=== PATIENT | female | born 1975 | race Two or more races ===

== ENCOUNTER 2018-06-26 09:45 | Day surgery (SDC) | payer MEDICAID ==
[2018-06-13 13:14] LABS: BASOPHILS % (AUTO) 0.7 % (0.0-2.0); HEMATOCRIT 44.4 % (37.0-47.0); LYMPHOCYTES % (AUTO) 37.8 % (20.0-45.0); MEAN CORPUSCULAR VOLUME 90 FL (80-99); MONOCYTES % (AUTO) 6.2 % (1.0-10.0); NEUTROPHILS % (AUTO) 53.3 % (45.0-75.0); PLATELET COUNT 297 K/UL (150-450); RED BLOOD COUNT 4.95 M/UL (4.20-5.40); RED CELL DISTRIBUTION WIDTH 12.1 % (11.6-14.8); WHITE BLOOD COUNT 9.7 K/UL (4.8-10.8)
[2018-06-13 13:22] LABS: ANION GAP 8 mmol/L (5-15); BLOOD UREA NITROGEN 7 mg/dL (7-18); CALCIUM 9.1 MG/DL (8.5-10.1); CARBON DIOXIDE 28 MMOL/L (21-32); CHLORIDE 101 MMOL/L (98-107); CREATININE 0.5 MG/DL (0.55-1.30); INR 1.2 (0.9-1.1); POTASSIUM 3.9 MMOL/L (3.5-5.1); SODIUM 137 MMOL/L (136-145)
[2018-06-13 13:25] LABS: APPEARANCE,URINE CLEAR; BILIRUBIN, URINE NEGATIVE (NEGATIVE); GLUCOSE, URINE (UA) 4+ (NEGATIVE); KETONES,URINE NEGATIVE (NEGATIVE); LEUKOCYTE ESTERASE ,URINE 1+ (NEGATIVE); NITRITE,URINE NEGATIVE (NEGATIVE); PH,URINE 6.5 (4.5-8.0); PROTEIN,URINE 2+ (NEGATIVE); UROBILINOGEN,URINE NORMAL MG/DL (0.0-1.0)
[2018-06-13 13:48] LABS: COLOR,URINE YELLOW
--- NOTE | 2018-06-14 16:05 | Cardiology Report ---
APPROVED REPORT EKG Measurement Heart [id number] [place] [id number] [id number] Normal sinus rhythm Normal ECG
--- NOTE | 2018-06-23 17:15 | Pre-op HX & Phy Repo 2 SIG ---
DATE OF ADMISSION: 06/26/2018 SCHEDULED FOR SURGERY: June 26, 2018. HISTORY OF PRESENT ILLNESS: The patient is a 42-year-old female in overall stable health, who presented with several weeks of bloody nipple discharge from the right breast. Mammogram was unremarkable. Ultrasound revealed an intraductal solid mass at 11 o'clock 2 cm from the nipple measuring 7 mm x 8 mm. Core biopsy revealed ductal carcinoma in situ. The patient is scheduled to undergo right breast biopsy with preoperative needle localization. PAST MEDICAL HISTORY: MEDICATIONS: Metformin, glipizide, Januvia, statin, lisinopril for hypertension, aspirin 81 mg daily. ALLERGIES: None, but she thinks she had a local reaction to injected dental anesthesia OPERATIONS: None. REVIEW OF SYSTEMS: She is nulliparous. She has irregular menstrual periods. PHYSICAL EXAMINATION: GENERAL: She is 5 feet 3 inches, 236 pounds. HEENT: Within normal limits. LUNGS: Clear. HEART: Regular rhythm. BREASTS: Large and ptotic. There is no palpable mass in either breast. There is no axillary or supraclavicular lymphadenopathy. ABDOMEN: Soft. PELVIC AND RECTAL: Per primary care. EXTREMITIES: Without edema. NEUROLOGIC: Physiologic. IMPRESSION: Right breast ductal carcinoma in situ, presenting as bloody nipple discharge from right nipple. PLAN: Full discussion has been had with the patient regarding the nature of condition, the nature of the surgery, indications, alternatives, options, and risks including bleeding, infection, need for additional surgery based on final pathology, need for additional treatment based on final pathology, scarring and distortion of the breast and/or nipple etc. All questions have been answered. She understands and agrees to proceed. Benito Rodriguez M.D. DR: Byron JOB#: [id number] CC: DUYEN
[2018-06-26] VITALS (11 sets, daily range): BP systolic 110–141; BP diastolic 65–86
[~2018-06-26] VITALS: Ht 160 cm; Wt 105.2 kg
[~2018-06-26 09:45] MED LIST: ATORVASTATIN CA40 MG ORAL; GLIPIZIDE10 MG PO; JANUVIA100 MG ORAL; LISINOPRIL40 MG ORAL; METFORMIN HCL1000 M1 ORAL
[2018-06-26] MEDS ORDERED: LR 1000ml 1,000 ML IVLG SCH (10:16)
--- NOTE | 2018-06-26 10:18 | Anethesia Preoperative Eval ---
Anesthesia Pre-op PMH/ROS General Date of Evaluation: Jun 26, 2018 Time of Evaluation: 12:57 Anesthesiologist: Zaheer ASA Score: ASA 3 Mallampati Score Class I : Soft palate, uvula, fauces, pillars visible Class II: Soft palate, uvula, fauces visible Class III: Soft palate, base of uvula visible Class IV: Only hard plate visible Mallampati Classification: Class II Surgeon: Michael Diagnosis: R Breast CA Surgical Procedure: R Breast Partial Mastectomy Anesthesia History: none Family History: no anesthesia problems Allergies: Coded Allergies: No Known Allergies (Unverified , 06/23/18) Medications: see eMAR Patient NPO?: Yes Past Medical History Cardiovascular: Reports: HTN Endocrine: Reports: DM Hematology/Immune: Reports: other - R Breast CA Other: obesity - Morbid BMI 43 Anesthesia Pre-op Phys. Exam Physician Exam Vital Signs Date Time Temp Pulse Resp B/P (MAP) Pulse Ox O2 Delivery O2 Flow Rate FiO2 06/26/18 10:54 97.6 80 20 114/67 96 Room Air Constitutional: NAD Neurologic: CN 2-12 intact Cardiovascular: RRR Respiratory: CTA Gastrointestinal: S/NT/ND Airway Exam Mallampati Score: Class II MO: limited ROM: limited Teeth: missing, intact Anesthesia Pre-op A/P Labs Labs Test 06/13/18 12:50 06/13/18 13:05 06/26/18 10:15 Urine Color Yellow Urine Appearance Clear Urine pH 6.5 (4.5-8.0) Urine Specific [place] 1.015 (1.005-1.035) Urine Protein 2+ (NEGATIVE) Urine Glucose (UA) 4+ (NEGATIVE) Urine Ketones Negative (NEGATIVE) Urine Blood Negative (NEGATIVE) Urine Nitrite Negative (NEGATIVE) Urine Bilirubin Negative (NEGATIVE) Urine Urobilinogen Normal MG/DL (0.0-1.0) Urine Leukocyte Esterase 1+ (NEGATIVE) Urine RBC 0 /HPF (0 - 2) Urine WBC 0-2 /HPF (0 - 2) Urine Squamous Epithelial Cells Few /LPF (NONE/OCC) Urine Bacteria Occasional /HPF (NONE) Urine Mucus Few /LPF (NONE/OCC) White Blood Count 9.7 K/UL (4.8-10.8) Red Blood Count 4.95 M/UL (4.20-5.40) Hemoglobin 15.0 G/DL (12.0-16.0) Hematocrit 44.4 % (37.0-47.0) Mean Corpuscular Volume 90 FL (80-99) Mean Corpuscular Hemoglobin 30.3 PG (27.0-31.0) Mean Corpuscular Hemoglobin Concent 33.8 G/DL (32.0-36.0) Red Cell Distribution Width 12.1 % (11.6-14.8) Platelet Count 297 K/UL (150-450) Mean Platelet Volume 6.5 FL (6.5-10.1) Neutrophils (%) (Auto) 53.3 % (45.0-75.0) Lymphocytes (%) (Auto) 37.8 % (20.0-45.0) Monocytes (%) (Auto) 6.2 % (1.0-10.0) Eosinophils (%) (Auto) 2.0 % (0.0-3.0) Basophils (%) (Auto) 0.7 % (0.0-2.0) Prothrombin Time 12.1 SEC (9.30-11.50) Prothromb Time International Ratio 1.2 (0.9-1.1) Activated Partial Thromboplast Time 27 SEC (23-33) Sodium Level 137 MMOL/L (136-145) Potassium Level 3.9 MMOL/L (3.5-5.1) Chloride Level 101 MMOL/L (98-107) Carbon Dioxide Level 28 MMOL/L (21-32) Anion Gap 8 mmol/L (5-15) Blood Urea Nitrogen 7 mg/dL (7-18) Creatinine 0.5 MG/DL (0.55-1.30) Estimat Glomerular Filtration Rate > 60 mL/min (>60) Glucose Level 184 MG/DL (74-106) Calcium Level 9.1 MG/DL (8.5-10.1) Urine HCG, Qualitative Negative (NEGATIVE) Urine Test Test 06/26/18 10:15 Urine HCG, Qualitative Pending Risk Assessment & Plan Assessment: ASA 3 Plan: GA, SED Status Change Before Surgery: No Pre-Antibiotics Dru Gram Ancef IV Given Within 1 Hr of Incision: Yes Time Given: 12:08 Kam Lobato MD Jun 26, 2018 10:18
[2018-06-26] MEDS ORDERED: Meperidine 50mg/ml Inj(FOR RIGORS ONLY) IVP PRN (10:30)
[2018-06-26] MEDS ORDERED: Midazolam 2mg/2ml Inj IVP PRN (10:30)
[2018-06-26] MEDS ORDERED: Hydromorphone 0.5mg/0.5ml inj IVP PRN (10:30)
[2018-06-26] MEDS ORDERED: Atropine Sulfate 0.4mg/ml inj IVP PRN (10:30)
[2018-06-26] MEDS ORDERED: Ketorolac 30mg Inj IV PRN ×3 (10:30→15:15)
[2018-06-26] MEDS ORDERED: oxyCODONE HCL/Acetaminophen 5/325mg ORAL PRN (10:30)
[2018-06-26] MEDS ORDERED: HYDROcodone/Acetamin 7.5/325 tab ORAL PRN (10:30)
[2018-06-26] MEDS ORDERED: Norco 5mg/325mg tab ORAL PRN ×2 (10:30→14:15)
[2018-06-26] MEDS ORDERED: DiphenhydrAMINE 50mg/ml Inj IVP PRN (10:30)
[2018-06-26] MEDS ORDERED: fentaNYL 100 mcg/2 mL IV PRN (10:30)
[2018-06-26] MEDS ORDERED: Metoclopramide 10mg/2ml Inj IVP PRN (10:30)
[2018-06-26] MEDS ORDERED: Acetaminophen (Non formulary) 100 ML IV ONE (10:30)
[2018-06-26] MEDS ORDERED: LORazepam Inj 2mg/ml 1ml IV PRN (10:30)
[2018-06-26] MEDS ORDERED: [UNRECOGNIZED DRUG - OTHER] PO (10:53)
[2018-06-26] MEDS ORDERED: TRANSFER FACTOR PO (10:53)
--- NOTE | 2018-06-26 11:00 | NUR ---
IV LR WAS STARTED BY [facility] RN. NO S/S OF INFILTRATION.
--- NOTE | 2018-06-26 11:40 | Immediate Post-Op Evaluation ---
Immediate Post-Op Evalulation Immediate Post-Op Evalulation Procedure: R Breast Partial Mastectomy Date of Evaluation: Jun 26, 2018 Time of Evaluation: 14:32 IV Fluids: 900 LR Blood Products: 0 Estimated Blood Loss: 18 Urinary Output: 0 Blood Pressure Systolic: 141 Blood Pressure Diastolic: 86 Pulse Rate: 92 Respiratory Rate: 16 O2 Sat by Pulse Oximetry: 100 Pain Score (1-10): 2 Nausea: No Vomiting: No Complications 0 Patient Status: awake, reacts, patent, extubated, none Hydration Status: adequate Dru Gram Ancef IV Given Within 1 Hr of Incision: Yes Time Given: 12:08 Kam Lobato MD Jun 26, 2018 11:40
[2018-06-26] MEDS ORDERED: fentaNYL 100 mcg/2 mL IV ONE (11:57)
[2018-06-26] MEDS ORDERED: Midazolam 2mg/2ml Inj ONE (11:57)
[2018-06-26] MEDS ORDERED: Lidocaine 1% MPF 10mg/ml 5ml ONE (11:57)
[2018-06-26] MEDS ORDERED: Sodium Chloride 10ml vial INJ ONE (11:57)
[2018-06-26] MEDS ORDERED: Lidocaine 1% Plain 30 ml INJ ONE (12:01)
[2018-06-26] MEDS ORDERED: Bacitracin 50000 Units Vial ONE (12:45)
--- NOTE | 2018-06-26 12:54 | Pre-Procedure Note/Attestation ---
Pre-Procedure Note/Attestation Complete Prior to Procedure Planned Procedure: right Procedure Narrative: right breast biopsy with pre-op needle localization Indications for Procedure Pre-Operative Diagnosis: ductal carcinoma right breast Attestation I attest that I discussed the nature of the procedure; its benefits; risks and complications; and alternatives (and the risks and benefits of such alternatives ), prior to the procedure, with the patient (or the patient's legal service liaison representative). I attest that, if there was a reasonable possibility of needing a blood transfusion, the patient (or the patient's legal service liaison representative) was given the [facility] standardized written summary, pursuant to the [employer] [place] Blood Safety Act ([place] Health and Safety Code # 1645, as amended). I attest that I re-evaluated the patient just prior to the surgery and that there has been no change in the patient's H&P, except as documented below:none Benito Rodriguez MD Jun 26, 2018 12:54
[2018-06-26] MEDS ORDERED: LR 1000ml ONE (13:00)
[2018-06-26] MEDS ORDERED: NS Irrig 1000ml ONE (13:00)
[2018-06-26] MEDS ORDERED: Propofol 1,000mg/ 100ml btl IV ONE (13:00)
[2018-06-26] MEDS ORDERED: Sterile Water Irrig 1000ml IRRIG ONE (13:00)
[2018-06-26] MEDS ORDERED: Bupivacaine 0.5% Inj 30 ml vial INJ ONE (13:43)
--- NOTE | 2018-06-26 14:11 | Brief Operative Note ---
Immediate Post Operative Note Operative Note Pre-op Diagnosis: ductal carcinoma in situ right breast Procedure: right breast biopsy with preop needle localization Post-op Diagnosis: same Post-op Diagnosis: same as pre-op Findings: consistent w/pre-op dx studies Surgeon: honorio Anesthesiologist: markus Anesthesia: general Specimen: yes - breast tissue Complications: none Condition: unstable Fluids: see anesthesia record Estimated Blood Loss: minimal Drains: none Implant(s) used?: No Benito Rodriguez MD Jun 26, 2018 14:11
[2018-06-26] MEDS ORDERED: D5 1/2NS 1,000 ML IV SCH (16:00)
--- NOTE | 2018-06-26 20:00 | Operative Note - Dictated ---
DATE OF OPERATION: 06/26/2018 SURGEON: Benito Rodriguez M.D. ENGRAVER HAND HARD METALS: None. ANESTHESIOLOGIST: Kam Lobato M.D. TYPE OF ANESTHESIA: General. PREOPERATIVE DIAGNOSIS: Ductal carcinoma in situ, right breast. POSTOPERATIVE DIAGNOSE: Ductal carcinoma in situ, right breast. OPERATION PERFORMED: Right breast biopsy with preoperative needle localization. INDICATIONS: The patient presented recently with a bloody nipple discharge. Mammogram was unremarkable, but ultrasound revealed an intraductal solid mass 7 x 8 mm in the upper outer quadrant, 2 cm from the nipple. Core biopsy revealed ductal carcinoma in situ. DESCRIPTION OF PROCEDURE: The patient was taken to the operating room and under general anesthesia with sequential compression device stockings in place, she was prepped and draped in usual fashion. A upper outer quadrant circumareolar incision was made with a lateral extension transversely. Flaps were dissected achieving hemostasis with cautery. The wire was brought into the field. The entire sector of breast tissue encompassing the hook wire extending subareolar was removed leaving no visible or palpable suspicious abnormality. The specimen was oriented with suture markers anterior, superior, and medial. Specimen radiograph confirmed the presence of the lesion, which was then given to pathology. After ascertaining the hemostasis was secured, the incision was closed with interrupted 3-0 Vicryl deep dermal subcutaneous sutures followed by continuous 4-0 Monocryl subcuticular suture. A 0.5% Marcaine was used for local infiltration. Mastisol and half-inch Steri-Strips were applied followed by dry sterile dressing. Final sponge and counts were correct. The patient tolerated the procedure well and left the operating room in good condition. Benito Rodriguez M.D. DR: CORTEZ JOB#: [id number] CC:
== END 2018-06-26 16:00 | disposition home or self-care (01) ==
LOC: EDBD → SDS 09:45 → SDSOVERFLO 09:46 → UNDOADMIN 09:46 → EDSTATUS 13:30 → SDS 16:00
DX: D05.11 Intraductal carcinoma in situ of right breast (principal); I10 Essential (primary) hypertension; E11.9 Type 2 diabetes mellitus without complications; E66.01 Morbid (severe) obesity due to excess calories; Z68.41 Body mass index [BMI] 40.0-44.9, adult; Z79.84 Long term (current) use of oral hypoglycemic drugs; Z79.82 Long term (current) use of aspirin
CPT/HCPCS: 19125; 36415; 80048; 81001; 81025; 82962; 85025; 85610; 85730; 93005; J0690; J1885; J2001; J2250; J2405; J2704; J3010; J3490; Z7512; 94003; 94150

== ENCOUNTER 2018-07-20 10:08 | Day surgery (SDC) | payer MEDICAID ==
--- NOTE | 2018-07-18 18:30 | Pre-op HX & Phy Repo 2 SIG ---
DATE OF ADMISSION: 07/20/2018 SCHEDULED FOR OUTPATIENT SURGERY: July 20, 2018. HISTORY OF PRESENT ILLNESS: The patient is a 42-year-old female in overall stable health, who underwent surgery June 26, 2018, undergoing excision of right breast ductal carcinoma in situ with preoperative needle localization. The patient presented with a bloody nipple discharge. She underwent mammography which was unremarkable, but ultrasound revealed an intraductal solid mass at 11 o'clock 2 cm from the nipple measuring 7 x 8 mm. Core biopsy revealed ductal carcinoma in situ. The patient's pathology from her surgery of June 26, 2018 revealed ductal carcinoma in situ within and intraductal papilloma, but ductal carcinoma in situ was present at the posterior and superior margins. There was no invasive carcinoma. It was also less than 1 mm from the anterior margin. The patient is scheduled to undergo reexcision of the biopsy cavity to clear the ductal carcinoma in situ and avoid total mastectomy. MEDICATIONS: Metformin, glipizide, Januvia, statin, lisinopril for hypertension, aspirin 81 mg daily. ALLERGIES: None, but she may have had a reaction to injected dental anesthesia. OPERATIONS: None. REVIEW OF SYSTEMS: She is nulliparous. She has regular menstrual periods. PHYSICAL EXAMINATION: GENERAL: The patient is 5 foot 3 inches, 236 pounds. HEENT: Within normal limits. LUNGS: Clear. HEART: Regular rhythm. BREASTS: Large and ptotic. The incision in the right breast is healing nicely. ABDOMEN: Soft. PELVIC AND RECTAL: Per primary care. EXTREMITIES: Without edema. NEUROLOGIC: Physiologic. IMPRESSION: Right breast ductal carcinoma in situ arising from intraductal papilloma with positive post excisional biopsy margins from surgery June 26, 2018. PLAN: Full discussion has been had with the patient regarding the nature of her condition, the need for re-excision. She understands and agrees to proceed. I have discussed the nature of procedure and risks. All questions have been answered. Benito Rodriguez M.D. DR: Byron JOB#: [id number] CC:
[~2018-07-20] VITALS: Ht 160 cm; Wt 101.2 kg
[2018-07-20] VITALS (10 sets, daily range): BP systolic 108–125; BP diastolic 48–67
[~2018-07-20 10:08] MED LIST changes: +TRANSFER FACTOR PO; +[UNRECOGNIZED DRUG - OTHER] PO
--- NOTE | 2018-07-20 10:58 | Pre-Procedure Note/Attestation ---
Pre-Procedure Note/Attestation Complete Prior to Procedure Planned Procedure: right Procedure Narrative: re-excision right breast DCIS Indications for Procedure Pre-Operative Diagnosis: DCIS right breast post-biopsy with positive margins Attestation I attest that I discussed the nature of the procedure; its benefits; risks and complications; and alternatives (and the risks and benefits of such alternatives ), prior to the procedure, with the patient (or the patient's legal telephone claims representative). I attest that, if there was a reasonable possibility of needing a blood transfusion, the patient (or the patient's legal telephone claims representative) was given the [facility] standardized written summary, pursuant to the Escobar [place] Blood Safety Act ([place] Health and Safety Code # 1645, as amended). I attest that I re-evaluated the patient just prior to the surgery and that there has been no change in the patient's H&P, except as documented below:none Benito Rodriguez MD Jul 20, 2018 10:58
[2018-07-20] MEDS ORDERED: Bacitracin 50000 Units Vial ONE (11:09)
[2018-07-20 11:11] LABS: BASOPHILS % (AUTO) 1.2 % (0.0-2.0); EOSINOPHILS % (AUTO) 1.6 % (0.0-3.0); HEMATOCRIT 43.5 % (37.0-47.0); LYMPHOCYTES % (AUTO) 39.3 % (20.0-45.0); MEAN CORPUSCULAR VOLUME 88 FL (80-99); MONOCYTES % (AUTO) 6.6 % (1.0-10.0); NEUTROPHILS % (AUTO) 51.3 % (45.0-75.0); PLATELET COUNT 286 K/UL (150-450); RED BLOOD COUNT 4.93 M/UL (4.20-5.40); RED CELL DISTRIBUTION WIDTH 12.3 % (11.6-14.8); WHITE BLOOD COUNT 8.3 K/UL (4.8-10.8)
[2018-07-20] MEDS ORDERED: Lidocaine 1% Plain 30 ml INJ ONE (11:55)
[2018-07-20] MEDS ORDERED: LR 1000ml ONE (12:00)
[2018-07-20] MEDS ORDERED: Sterile Water Irrig 1000ml IRRIG ONE (12:00)
[2018-07-20] MEDS ORDERED: Propofol 1,000mg/ 100ml btl IV ONE (12:00)
[2018-07-20] MEDS ORDERED: NS Irrig 1000ml ONE (12:00)
[2018-07-20] MEDS ORDERED: Sodium Chloride 10ml vial INJ ONE (12:01)
[2018-07-20] MEDS ORDERED: Lidocaine 1% MPF 10mg/ml 5ml ONE (12:01)
[2018-07-20] MEDS ORDERED: Midazolam 2mg/2ml Inj ONE (12:02)
[2018-07-20] MEDS ORDERED: Alfentanil 2ml Inj ONE (12:02)
--- NOTE | 2018-07-20 12:20 | Anethesia Preoperative Eval ---
Anesthesia Pre-op PMH/ROS General Date of Evaluation: Jul 20, 2018 Time of Evaluation: 11:54 Anesthesiologist: Luis Alfredo ASA Score: ASA 3 Mallampati Score Class I : Soft palate, uvula, fauces, pillars visible Class II: Soft palate, uvula, fauces visible Class III: Soft palate, base of uvula visible Class IV: Only hard plate visible Mallampati Classification: Class II Surgeon: Michael Diagnosis: DCIS Surgical Procedure: Re-Incision R Breast DCIS Anesthesia History: none Family History: no anesthesia problems Allergies: Coded Allergies: No Known Allergies (Unverified , 07/20/18) Medications: see eMAR Patient NPO?: Yes Past Medical History Cardiovascular: Reports: HTN Endocrine: Reports: DM Other: obesity - BMI 43 PSxH Narrative: 3 wks ED TECH, R Breast DCIS taken, path returned with + margins Anesthesia Pre-op Phys. Exam Physician Exam Last Vital Signs Date Time Temp Pulse Resp B/P (MAP) Pulse Ox O2 Delivery O2 Flow Rate FiO2 07/20/18 11:23 Room Air 07/20/18 11:10 98.4 80 18 121/67 96 Constitutional: NAD Neurologic: CN 2-12 intact Cardiovascular: RRR Respiratory: CTA Gastrointestinal: S/NT/ND Airway Exam Mallampati Score: Class II MO: full ROM: limited Teeth: missing, intact Anesthesia Pre-op A/P Labs Hematology Test 07/20/18 09:10 White Blood Count 8.3 K/UL (4.8-10.8) Red Blood Count 4.93 M/UL (4.20-5.40) Hemoglobin 15.0 G/DL (12.0-16.0) Hematocrit 43.5 % (37.0-47.0) Mean Corpuscular Volume 88 FL (80-99) Mean Corpuscular Hemoglobin 30.5 PG (27.0-31.0) Mean Corpuscular Hemoglobin Concent 34.6 G/DL (32.0-36.0) Red Cell Distribution Width 12.3 % (11.6-14.8) Platelet Count 286 K/UL (150-450) Mean Platelet Volume 7.4 FL (6.5-10.1) Neutrophils (%) (Auto) 51.3 % (45.0-75.0) Lymphocytes (%) (Auto) 39.3 % (20.0-45.0) Monocytes (%) (Auto) 6.6 % (1.0-10.0) Eosinophils (%) (Auto) 1.6 % (0.0-3.0) Basophils (%) (Auto) 1.2 % (0.0-2.0) Urine Test Test 07/20/18 10:30 Urine HCG, Qualitative Negative (NEGATIVE) Risk Assessment & Plan Assessment: ASA 3 Plan: GA, SED Status Change Before Surgery: No Pre-Antibiotics Dru Gram Ancef IV Given Within 1 Hr of Incision: Yes Time Given: 12:06 Kam Lobato MD Jul 20, 2018 12:20
[2018-07-20] MEDS ORDERED: Bupivacaine 0.5% Inj 30 ml vial INJ ONE (12:31)
--- NOTE | 2018-07-20 12:39 | Immediate Post-Op Evaluation ---
Immediate Post-Op Evalulation Immediate Post-Op Evalulation Procedure: Re-Incision R Breast DCIS Date of Evaluation: Jul 20, 2018 Time of Evaluation: 13:38 IV Fluids: 800 LR Blood Products: 0 Estimated Blood Loss: 17 Urinary Output: 0 Blood Pressure Systolic: 118 Blood Pressure Diastolic: 58 Pulse Rate: 69 Respiratory Rate: 16 O2 Sat by Pulse Oximetry: 98 Temperature (Fahrenheit): 97.5 Pain Score (1-10): 2 Nausea: No Vomiting: No Complications 0 Patient Status: awake, reacts, patent, extubated, none Hydration Status: adequate Dru Gram Ancef IV Given Within 1 Hr of Incision: Yes Time Given: 12:06 Kam Lobato MD Jul 20, 2018 12:39
--- NOTE | 2018-07-20 12:39 | 48 Hour Post Anesthesia Eval ---
Post Anesthesia Evaluation Procedure: Re-Incision R Breast DCIS Date of Evaluation: Jul 20, 2018 Time of Evaluation: 15:43 Blood Pressure Systolic: 138 0: 76 Pulse Rate: 81 Respiratory Rate: 18 Temperature (Fahrenheit): 98.2 O2 Sat by Pulse Oximetry: 97 Airway: patent Nausea: No Vomiting: No Pain Intensity: 2 Hydration Status: adequate Cardiopulmonary Status: Stable Mental Status/LOC: patient returned to baseline Follow-up Care/Observations: 0 Post-Anesthesia Complications: 0 Follow-up care needed: ready to discharge Kam Lobato MD Jul 20, 2018 12:39
[2018-07-20] MEDS ORDERED: LR 1000ml 1,000 ML IVLG SCH (12:42)
[2018-07-20] MEDS ORDERED: LORazepam Inj 2mg/ml 1ml IV PRN (12:45)
[2018-07-20] MEDS ORDERED: Midazolam 2mg/2ml Inj IVP PRN (12:45)
[2018-07-20] MEDS ORDERED: HYDROcodone/Acetamin 5/325 tab ORAL PRN ×2 (12:45→18:01)
[2018-07-20] MEDS ORDERED: DiphenhydrAMINE 50mg/ml Inj IVP PRN (12:45)
[2018-07-20] MEDS ORDERED: Meperidine 50mg/ml Inj(FOR RIGORS ONLY) IVP PRN (12:45)
[2018-07-20] MEDS ORDERED: Acetaminophen (Non formulary) 100 ML IV ONE (12:45)
[2018-07-20] MEDS ORDERED: Atropine Sulfate 0.4mg/ml inj IVP PRN (12:45)
[2018-07-20] MEDS ORDERED: Metoclopramide 10mg/2ml Inj IVP PRN (12:45)
[2018-07-20] MEDS ORDERED: oxyCODONE HCL/Acetaminophen 5/325mg ORAL PRN (12:45)
[2018-07-20] MEDS ORDERED: Labetalol 5mg/ml 20ml vial IV PRN (12:45)
[2018-07-20] MEDS ORDERED: Ketorolac 30mg Inj IV PRN ×2 (12:45)
[2018-07-20] MEDS ORDERED: fentaNYL 100 mcg/2 mL IV PRN (12:45)
[2018-07-20] MEDS ORDERED: HYDROcodone/Acetamin 7.5/325 tab ORAL PRN (12:45)
[2018-07-20] MEDS ORDERED: Hydromorphone 0.5mg/0.5ml inj IVP PRN (12:45)
[2018-07-20] MEDS ORDERED: Ketorolac 30mg Inj ONE (12:59)
--- NOTE | 2018-07-20 13:21 | Brief Operative Note ---
Immediate Post Operative Note Operative Note Pre-op Diagnosis: DCIS right breast post-biopsy with positive margins Procedure: re-excision DCIS right breast Post-op Diagnosis: same Post-op Diagnosis: same as pre-op Findings: consistent w/pre-op dx studies Surgeon: honorio Anesthesiologist: markus Anesthesia: general Specimen: yes - breast tissue x 3 Complications: none Condition: stable Fluids: see anesthesia record Estimated Blood Loss: none Drains: none Implant(s) used?: No Benito Rodriguez MD Jul 20, 2018 13:21
[2018-07-20] MEDS ORDERED: D5 1/2NS 1,000 ML IV SCH (18:01)
[2018-07-20] MEDS ORDERED: Tylenol #3 tab (300mg/30mg) ORAL PRN (18:01)
[2018-07-20] MEDS ORDERED: Hydromorphone 0.5mg/0.5ml inj SUBQ PRN (18:01)
--- NOTE | 2018-07-20 20:00 | Operative Note - Dictated ---
DATE OF OPERATION: 07/20/2018 SURGEON: Benito Rodriguez M.D. MAINTENANCE REPAIRMAN: None. ANESTHESIOLOGIST: Kam Lobato M.D. TYPE OF ANESTHESIA: General. PREOPERATIVE DIAGNOSIS: Ductal carcinoma in situ, right breast. Status post partial mastectomy with positive margins. POSTOPERATIVE DIAGNOSIS: Ductal carcinoma in situ, right breast. Status post partial mastectomy with positive margins. OPERATION PERFORMED: Re-excision ductal carcinoma in situ, right breast. DESCRIPTION OF PROCEDURE: The patient was taken to the operating room and under general anesthesia with sequential compression device stockings in place, she was prepped and draped in usual fashion. The previous incision, which was circumareolar in the upper outer portion of the breast extended laterally was reopened achieving hemostasis with cautery. Serous fluid in the biopsy cavity was evacuated. The positive margin was posterior superior and close anterior. Appropriate sectors of tissue were removed in all of these areas and properly oriented for the pathologist. The field was irrigated with antibiotic solution. Hemostasis was secured with cautery. There were no gross abnormalities suggesting the need for additional excision. The incision was closed with interrupted 3-0 Vicryl subcutaneous deep dermal sutures and 4-0 Monocryl continuous subcuticular suture. Tincture of benzoin and half-inch Steri-Strips were applied followed by dry sterile dressing and application of a post partial mastectomy surgical brassiere. The patient tolerated the procedure well and left the operating room in good condition. Benito Rodriguez M.D. DR: CORTEZ JOB#: [id number] CC:
== END 2018-07-20 15:30 | disposition home or self-care (01) ==
LOC: SUR 10:08
DX: D05.11 Intraductal carcinoma in situ of right breast (principal); Z79.84 Long term (current) use of oral hypoglycemic drugs; Z79.82 Long term (current) use of aspirin; Z90.11 Acquired absence of right breast and nipple; E11.9 Type 2 diabetes mellitus without complications; I10 Essential (primary) hypertension
CPT/HCPCS: 19120; 36415; 81025; 82962; 85025; J0690; J1885; J2001; J2250; J2405; J2704; J3490; Z7512; 94003; 94150